=== PATIENT | female | born 1990 | race Caucasian/White ===

== ENCOUNTER 2020-09-15 21:12 | Inpatient (IN) ==
[2020-09-15] MEDS ORDERED: diphenhydrAMINE 50 MG/ML VIAL IV STA (22:53)
[2020-09-15 23:08] LABS: Hematocrit (blood only) 37.4 % (37-47); Hemoglobin 12.7 g/dL (12.0-16.0); Mean Corpuscular Hemoglobin 30.3 pg (25-34); Mean Corpuscular Volume 89.3 fL (80-100); Mean Platelet Volume 8.4 fL (7.4-10.4); Platelet Count 163 K/uL (130-400); RDW Coefficient of Variation 12.2 % (11.5-14.5); RDW Standard Deviation 39.5 fL (36.4-46.3); Red Blood Count 4.19 M/uL (4.2-5.4); White Blood Count 3.95 K/uL (4.8-10.8)
[2020-09-15 23:29] LABS: Albumin Level 3.6 gm/dl (3.4-5.0); BUN Creatinine Ratio 18.8 (10-20); Calcium 9.1 mg/dl (8.5-10.1); Creatinine Clr Calc Pharmacy 115.3 ml/min; Est GFR (African American) 130.2 ml/min; Est GFR (Non-African American) 112.4 ml/min; Potassium 3.8 mmol/L (3.5-5.1)
[2020-09-15 23:32] LABS: Bilirubin,Total 0.3 mg/dl (0.2-1); Globulin 3.6 gm/dl (2.5-4.0); Total Protein 7.2 gm/dl (6.4-8.2)
[2020-09-15 23:53] LABS: Basophils # (auto) 0.07 K/uL (0-0.2); Basophils % (auto) 1.8 %; Eosinophils % (auto) 5.1 %; Lymphocytes % (auto) 50.6 %; Monocytes # (auto) 0.69 K/uL (0.11-0.59); Monocytes % (auto) 17.5 %; Neutrophils # (auto) 0.99 K/uL (1.4-6.5)
[2020-09-16] MEDS ORDERED: OPTIRAY 320 100ml IV ONE (00:09)
[2020-09-16] MEDS ORDERED: AMPICILLIN/SULBACTAM SOD 3,000 MG in 0.9 % SODIUM CHLORIDE 100 ML IV STA (00:47)
[2020-09-16] MEDS ORDERED: ACETAMINOPHEN 500 MG TAB PO STA (02:03)
[2020-09-16] MEDS ORDERED: VANCOMYCIN CONSULT ACTIVE PRN (04:29)
[2020-09-16] MEDS ORDERED: SODIUM CHLORIDE 0.9% 1000ML 1,000 ML IV SCH ×2 (04:29→16:15)
[2020-09-16] MEDS ORDERED: POLYETHYLENE (MIRALAX) 17 GM PACK PO PRN (04:29)
[2020-09-16] MEDS ORDERED: PIPERACILL/TAZOBAC CONSULT ACTIVE PRN (04:29)
[2020-09-16] MEDS: ACETAMINOPHEN 325 MG TAB PO PRN ×3 (05:18→19:54)
[2020-09-16] MEDS ORDERED: PIPERACILLIN/TAZOBACTAM 3.375 GM in DEXTROSE 5% 100 ML IV ONE (05:30)
[2020-09-16] MEDS ORDERED: VANCOMYCIN HCL 1,750 MG in SODIUM CHLORIDE 0.9% 500 ML IV ONE (05:30)
--- NOTE | 2020-09-16 06:24 | History and Physical Report ---
DATE OF ADMISSION: 09/16/2020. CHIEF COMPLAINT: Facial cellulitis. HISTORY OF PRESENT ILLNESS: This is a 30-year-old female with no significant past medical history who presents with facial cellulitis on the left side. The patient started noticing a pimple in the left side of the nose. This got worsened, went to a care center and they prescribed Keflex, but it was not getting better, so went again yesterday and was prescribed Augmentin and clindamycin, but then she broke out in a rash and came here. Now the infection is involving the whole of the left side of the face and also for some swelling around the left eye. So came here and breaking out of the skin rash was thought to be from clindamycin because she has tolerated Augmentin in the past. She was given Unasyn and IV Benadryl in the ER. Currently, resting comfortably and hemodynamically stable. Swelling on the left side of the face with some mild swelling around the left side of the eye. Denies any fever or chills. No shortness of breath, no cough, no chest pain. Has some headache, no blurred visions. No nausea, no abdominal pain, normal bowel and bladder movements. ALLERGIES: No known drug allergies. PAST MEDICAL HISTORY: As mentioned above. PAST SURGICAL HISTORY: None. MEDICATIONS: None. FAMILY HISTORY: None. SOCIAL HISTORY: No smoking, no alcohol. REVIEW OF SYSTEMS: As per HPI. Rest of the review of systems is negative. PHYSICAL EXAMINATION: GENERAL: The patient is of moderate build, not in acute distress. VITAL SIGNS: Temperature 36.7, pulse 70, respiratory rate 14, blood pressure 124/73, oxygen 100% on room air. HEENT: Pupils equal, round and reactive to light. Left eye perioribital edema seen and mild erythema seen. The left side of the face is erythematous and swollen and some black scar seen close to the left side of the nose. NECK: No JVD, no neck masses. CARDIOVASCULAR: S1 and S2 heard. Regular rate and rhythm. No murmur, no gallop. RESPIRATORY SYSTEM: Normal AP diameter. No accessory muscle use. No wheezing, no crackles. ABDOMEN: Soft, bowel sounds present, nontender, no distention. CENTRAL NERVOUS SYSTEM: Cranial nerves II-XII grossly intact, nonfocal. EXTREMITIES: No edema, no erythema. LABORATORY DATA: WBC 3.95, hemoglobin 12.7, hematocrit 37.4, platelets 163, neutrophils 0.9 and monocytes 0.69. Sodium 138, potassium 3.8, chloride 108, bicarbonate 27, BUN 14, creatinine 0.7, serum glucose 89, calcium 9.1, total bilirubin 0.3, AST 14, ALT 22, alkaline phosphatase 53. SARS-CoV-2 PCR negative. IMAGING DATA: Facial CT, preliminary report is showing nonspecific left periorbital and premarrow soft tissue edema with subcutaneous fat stranding, likely cellulitis given the clinical scenario, nonspecific enlarged left station IB and bilateral station II lymph nodes, likely reactive. No evidence of abscess. ASSESSMENT AND PLAN: This is a 30-year-old female, who presents with left facial cellulitis. 1. Left facial cellulitis: started about one week ago with pimple. Failed outpatient treatment with oral antibiotics and also some possible rash developed from the clindamycin. ER gave Unasyn. We will start empirically on IV Zosyn and IV vancomycin. Follow the cultures. Follow the response. Monitor in the medical floor. 2. Leukopenia. Neutropenia. Follow repeat labs. 3.. Deep venous thrombosis prophylaxis: Sequential compression devices. DISPOSITION: Admit to medical floor. Expect to discharge home and follow with family doctor. Level 1 full code. Job ID: [id number] [facility]
[2020-09-16 07:19] LABS: Hematocrit (blood only) 36.7 % (37-47); Hemoglobin 12.2 g/dL (12.0-16.0); Mean Corpuscular Hemoglobin 30.7 pg (25-34); Mean Corpuscular Hgb Conc 33.2 g/dL (32-36); Mean Corpuscular Volume 92.4 fL (80-100); Mean Platelet Volume 8.2 fL (7.4-10.4); Platelet Count 158 K/uL (130-400); RDW Coefficient of Variation 12.3 % (11.5-14.5); RDW Standard Deviation 42.3 fL (36.4-46.3); Red Blood Count 3.97 M/uL (4.2-5.4); White Blood Count 3.93 K/uL (4.8-10.8)
[2020-09-16 07:46] LABS: BUN Creatinine Ratio 15.3 (10-20); Calcium 8.5 mg/dl (8.5-10.1); Creatinine Clr Calc Pharmacy 112.1 ml/min; Est GFR (Non-African American) 108.7 ml/min; Magnesium 2.1 mg/dl (1.8-2.4); Potassium 4.1 mmol/L (3.5-5.1)
[2020-09-16 07:53] LABS: Basophils # (auto) 0.08 K/uL (0-0.2); Eosinophils # (auto) 0.16 K/uL (0-0.5); Eosinophils % (auto) 4.1 %; Immature Granulocytes # (auto) 0.01 K/uL (0.00-0.02); Immature Granulocytes % (auto) 0.3 %; Lymphocytes # (auto) 1.69 K/uL (1.2-3.4); Monocytes % (auto) 25.4 %; Neutrophils # (auto) 0.99 K/uL (1.4-6.5); Neutrophils % (auto) 25.2 %
--- NOTE | 2020-09-16 07:54 | CT Scan Report ---
CT SCAN OF THE FACIAL BONES WITH IV CONTRAST CLINICAL HISTORY: Left periorbital/facial swelling. Cellulitis. COMPARISON STUDY: No priors. TECHNIQUE: High-resolution CT scan of the facial bones is performed following the IV administration of 93 cc of Optiray 320. Images are reviewed in the axial, sagittal, and coronal planes. IV contrast was administered without complication. A dose lowering technique was utilized adhering to the princi ples of BONNIE. CT DOSE: 172.59 mGy.cm FINDINGS: The skeletal structures are well mineralized. There is no evidence of facial bone fracture. The bony orbits are intact and the orbital contents are within normal limits. The zygomatic arches, nasal bones, and pterygoid plates are preserved. The maxilla and mandible are intact. There are no la yering blood products within the paranasal sinuses. The sinuses and mastoids are clear. The visualize d calvarium and upper cervical spine are maintained. Partially imaged brain parenchyma is within norm al limits. There is left periorbital and premalar soft tissue infiltration consistent with cellulitis . No organized fluid collection is seen to suggest abscess. The carotid arteries and jugular veins ar e patent. The salivary glands are normal in appearance. Prominent left submandibular and upper cervic al chain lymph nodes are likely reactive. IMPRESSION: 1. No facial bone abnormality is identified. 2. There is evidence of left periorbital and facial cellulitis. No organized fluid collection is seen to suggest abscess. 3. Prominent left submandibular and upper cervical chain lymph nodes are likely reactive. 4. Orbital contents are normal in appearance. ACT 112: Negative or not required by law. Electronically signed by: Marko De Paz M.D. 09/16/2020 7:52 AM
--- NOTE | 2020-09-16 10:14 | Pharmacy Report ---
Pharmacy Abx Dose Short Note - Date of Service September 16, 2020 - Assessment & Plan Assessment 30 year old F receiving Vancomycin and Zosyn for treatment of facial cellulitis * No significant past medical history. * Patient had pimple on L side of nose which worsened so she was prescribed Keflex as outpatient. Still was not improving so abx were escalated to Augmentin and Clindamycin. Broke out in a rash and came to ER. Likely rxn to Clindamycin as she has tolerated Augmentin in the past. * CT showed cellulitis. No evidence of osteomyelitis or abscess. * MRSA nasal swab negative. Blood cultures pending. Afebrile and without leukocytosis. Renal fxn stable. Plan Vancomycin * Loading Dose: 1750 mg (25 mg/kg) IV x 1 * Maintenance Dose: 1000 mg (15 mg/kg) IV every 12 hours * Goal trough level: 10-20 mcg/mL * Trough will be ordered on 09/18/20 prior to the 1400 dose Zosyn * 3.375 g IV x 1 followed by 3.375 g IV extended infusion every 8 hours for CrCl greater than 20 mL/min Pharmacy will continue to follow and will adjust dose/frequency as necessary. Thank you.
[2020-09-16] MEDS ORDERED: PIPERACILLIN/TAZOBACTAM 3.375 GM in DEXTROSE 5% 100 ML IV SCH (12:00)
[2020-09-16] MEDS ORDERED: VANCOMYCIN HCL 1,000 MG in SODIUM CHLORIDE 0.9% 250 ML IV SCH (14:00)
--- NOTE | 2020-09-16 15:42 | Hospitalist Progress Note ---
Date of Service September 16, 2020 Assessment & Plan (1) Cellulitis of face: Patient is a 30 yr female, who presents with left facial cellulitis. Left facial cellulitis: Possible Drug reaction to Augmentin -POA -Facial CT: No facial bone abnormality is identified. There is evidence of left periorbital and facial cellulitis. No organized fluid collection is seen to suggest abscess. Prominent left submandibular and upper cervical chain lymph nodes are likely reactive. Orbital contents are normal in appearance. -Outpatient Augmentin, clindamycin discontinued -Continue cefazolin Leukopenia Neutropenia Likely due to infection/meds Neutropenic precautions Monitor CBC DVT Px: SCDs for now Encourage to ambulate Code Status Full code. Admission and Anticipated Discharge Date Admission Date: September 16, 2020 Subjective Is continued swelling and redness on face, no fever or chills, no problems swallowing Review of Systems Review of Systems: All systems reviewed & are unremarkable except as noted in Subjective Physical Exam Constitutional: WD/WN, vitals as above no acute distress ENMT: Swelling, on the left side of face, eschar noted on the left side of initial. Neck: trachea midline, no thyromegaly Respiratory: normal respiratory effort, lungs clear to auscultation Cardiovascular: RRR, no murmur, no edema Gastrointestinal (Abdomen): normal bowel sounds, soft, nontender, no hepatosplenomegaly Musculoskeletal: no cyanosis or clubbing, extremities motor strength 5/5 Skin: no rashes, warm and dry Neurologic: PERRL, EOMI, accommodation nl, no face palsy, no dysarthria Psychiatric: A+Ox3, euthymic affect Results & Data Results & Data ([facility]) Vital Signs (Past 12 Hours) Vital Signs Temp Pulse Resp BP Pulse Ox Pulse Ox 09/16/20 04:32 37.1 C 77 19 133/96 100 100 09/16/20 04:00 36.7 C 84 16 126/83 99
[2020-09-16] MEDS: AMPICILLIN/SULBACTAM SOD 3,000 MG in 0.9 % SODIUM CHLORIDE 100 ML IV SCH ×2 (16:43→22:31)
[2020-09-16] MEDS: KETOROLAC TROMETHAMINE 15 MG/ML VIAL IV PRN ×2 (16:44→22:31)
[2020-09-16] MEDS ORDERED: AMOXICILLIN/CLAVULANATE 875 MG TAB PO SCH (17:00)
[2020-09-16] MEDS: MUPIROCIN 2% EXT SCH (19:51)
[2020-09-17] MEDS: AMPICILLIN/SULBACTAM SOD 3,000 MG in 0.9 % SODIUM CHLORIDE 100 ML IV SCH ×2 (03:49→10:48)
[2020-09-17] MEDS: KETOROLAC TROMETHAMINE 15 MG/ML VIAL IV PRN (06:21)
[2020-09-17 06:23] LABS: Hematocrit (blood only) 35.9 % (37-47); Hemoglobin 11.9 g/dL (12.0-16.0); Mean Corpuscular Hemoglobin 30.3 pg (25-34); Mean Corpuscular Hgb Conc 33.1 g/dL (32-36); Mean Corpuscular Volume 91.3 fL (80-100); Mean Platelet Volume 8.4 fL (7.4-10.4); Platelet Count 160 K/uL (130-400); RDW Coefficient of Variation 12.1 % (11.5-14.5); RDW Standard Deviation 41.2 fL (36.4-46.3); Red Blood Count 3.93 M/uL (4.2-5.4); White Blood Count 5.28 K/uL (4.8-10.8)
[2020-09-17 06:41] LABS: Basophils # (auto) 0.06 K/uL (0-0.2); Basophils % (auto) 1.1 %; Eosinophils # (auto) 0.15 K/uL (0-0.5); Eosinophils % (auto) 2.8 %; Immature Granulocytes # (auto) 0.01 K/uL (0.00-0.02); Immature Granulocytes % (auto) 0.2 %; Lymphocytes % (auto) 43.6 %; Monocytes # (auto) 0.61 K/uL (0.11-0.59); Monocytes % (auto) 11.6 %; Neutrophils # (auto) 2.15 K/uL (1.4-6.5); Neutrophils % (auto) 40.7 %
[2020-09-17 06:50] LABS: Creatinine Clr Calc Pharmacy 159.6 ml/min; Est GFR (African American) 148.6 ml/min; Est GFR (Non-African American) 128.2 ml/min
--- NOTE | 2020-09-17 07:23 | Emergency Department Note ---
History of Present Illness General Chief complaint: Skin Problem Stated complaint: RASH ON BODY, LEISION ON LEFT SIDE OF NOSE Time Seen by Provider: 09/15/20 22:16 Source: patient Mode of arrival: ambulatory Limitations: no limitations History of Present Illness Maximum Pain Intensity: 8 This patient is a 30-year-old female who presents to the emergency department for evaluation of swelling on her face. Patient states that last week, she noticed a bump on the left side of her nose which she initially thought was a pimple. It gradually became more swollen and there was a scabbed area over the nose. She was seen at urgent care yesterday and started on Keflex. This morning, she woke up and the swelling had increased significantly. She noticed swelling around her left eye. She was again seen in urgent care and was switched from the Keflex to Augmentin, clindamycin and Bactroban. She states that after starting these medications, she developed a rash on her chest, back and arms which is itchy. She believes she may be allergic to the clindamycin, as she has never had any issues with penicillins in the past. She denies any fevers. She denies any difficulty moving her eye or double vision. Home Medications Medication Instructions Recorded Confirmed Type cephalexin 500 mg PO QID 09/16/20 09/16/20 History etonogestrel-ethinyl estradiol 1 vag ring VAGINAL UD 09/16/20 09/16/20 History [EluRyng] Allergies Allergy/AdvReac Type Severity Reaction Status Date / Time No Known Allergies Allergy Unverified 09/16/20 00:02 Past Med/Surg History Medical History No significant past medical history Social History Smoking Status: Never smoker Second Hand Exposure: No; Do You Dip or Chew Tobacco: No; Tobacco Cessation Education Requested by Patient: No Hx Alcohol Use: Yes Alcohol type: beer and wine Hx Substance Use: No Preferred Language: Japanese Communication Ability: Effective 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 GENERAL: This is a 30-year-old female, in no acute distress, well-developed well-nourished. SKIN: There is a crusted lesion to the left side of the nose. There is surrounding erythema and swelling which extends to the left periorbital region. HEAD: Normocephalic atraumatic. EARS: External auditory canals clear, tympanic membranes pearly vila without erythema or effusion bilaterally. EYES: Left periorbital swelling noted. Pupils equal round and reactive to light and accommodation. EOMs intact. NOSE: Crusted lesion to the left side of the nose. MOUTH: Mucous membranes moist. Tonsils are not enlarged. Pharynx without erythema or exudate. NECK: Supple without nuchal rigidity. No lymphadenopathy. HEART: Regular rate and rhythm without murmurs gallops or rubs. LUNGS: Clear to auscultation bilaterally without wheezes, rales or rhonchi. NEURO: Patient was alert and oriented to person place and time. Course Consultations Consultation #1: Dr. Maria [facility] hospitalist Administered Medications Acetaminophen (Acetaminophen 325 Mg Tab) 650 mg PO Q4H PRN PRN Reason: pain/fever Stop: 10/16/20 04:28 Last Admin: 09/16/20 19:54 Dose: 650 mg Documented by: [id number] Admin: 09/16/20 09:47 Dose: 650 mg Documented by: [id number] Admin: 09/16/20 05:18 Dose: 650 mg Documented by: [id number] Ampicillin Sodium/Sulbactam Sodium 3,000 mg/ Sodium Chloride 108 mls @ 216 mls/hr IV Q6H [facility]; Protocol Stop: 09/23/20 16:29 Last Infusion: 09/17/20 04:20 Dose: 0 mls/hr Documented by: [id number] Admin: 09/17/20 03:49 Dose: 216 mls/hr Documented by: [id number] Infusion: 09/16/20 23:01 Dose: 0 mls/hr Documented by: [id number] Admin: 09/16/20 22:31 Dose: 216 mls/hr Documented by: [id number] Infusion: 09/16/20 17:22 Dose: 0 mls/hr Documented by: [id number] Admin: 09/16/20 16:43 Dose: 216 mls/hr Documented by: [id number] Ketorolac Tromethamine (Ketorolac Tromethamine 15 Mg/Ml Vial) 15 mg IV Q6H PRN PRN Reason: Pain Stop: 09/21/20 16:10 Last Admin: 09/17/20 06:21 Dose: 15 mg Documented by: [id number] Admin: 09/16/20 22:31 Dose: 15 mg Documented by: [id number] Admin: 09/16/20 16:44 Dose: 15 mg Documented by: [id number] Mupirocin (Pt Own Med - Mupirocin 2% Oint 22 Gm Tube) 1 appln EXT TID HERLINDA Stop: 10/16/20 20:59 Last Admin: 09/16/20 19:51 Dose: 1 appln Documented by: [id number] Zinc Acetate/Diphenhydramine (Diphenhydramine 2%/Zinc 0.1% Cream 28gm Tube) 1 appln EXT Q6 PRN PRN Reason: Itching Stop: 10/16/20 18:59 Last Admin: 09/16/20 19:54 Dose: 1 appln Documented by: [id number] Discontinued Medications Acetaminophen (Acetaminophen 500 Mg Tab) 1,000 mg PO NOW STA Stop: 09/16/20 02:04 Last Admin: 09/16/20 02:08 Dose: 1,000 mg Documented by: [id number] Diphenhydramine HCl (Diphenhydramine 50 Mg/Ml Vial) 25 mg IV NOW STA Stop: 09/15/20 22:54 Last Admin: 09/15/20 23:05 Dose: 25 mg Documented by: [id number] Ampicillin Sodium/Sulbactam Sodium 3,000 mg/ Sodium Chloride 108 mls @ 200 mls/hr IV NOW STA; Protocol Stop: 09/16/20 01:19 Last Infusion: 09/16/20 01:43 Dose: 0 mls/hr Documented by: [id number] Admin: 09/16/20 01:01 Dose: 200 mls/hr Documented by: [id number] Piperacillin Sod/Tazobactam (Sod 3.375 gm/ Dextrose) 115 mls @ 28.75 mls/hr IV Q8H HERLINDA; Protocol Stop: 09/23/20 11:59 Last Infusion: 09/16/20 15:28 Dose: 0 mls/hr Documented by: [id number] Admin: 09/16/20 12:01 Dose: 28.8 mls/hr Documented by: [id number] Vancomycin HCl 1,750 mg/ (Sodium Chloride) 535 mls @ 200 mls/hr IV ONE ONE; Protocol Stop: 09/16/20 08:10 Last Infusion: 09/16/20 09:47 Dose: 0 mls/hr Documented by: [id number] Admin: 09/16/20 06:03 Dose: 200 mls/hr Documented by: [id number] Sodium Chloride (Nss 1000ml) 1,000 mls @ 100 mls/hr IV .Q10H HERLINDA Stop: 09/16/20 14:28 Last Infusion: 09/16/20 12:44 Dose: 0 mls/hr Documented by: [id number] Admin: 09/16/20 05:18 Dose: 100 mls/hr Documented by: [id number] Piperacillin Sod/Tazobactam (Sod 3.375 gm/ Dextrose) 115 mls @ 230 mls/hr IV ONE ONE; Protocol Stop: 09/16/20 05:59 Last Infusion: 09/16/20 05:52 Dose: 0 mls/hr Documented by: [id number] Admin: 09/16/20 05:22 Dose: 230 mls/hr Documented by: [id number] Sodium Chloride (Nss 1000ml) 1,000 mls @ 75 mls/hr IV .[id number] HERLINDA Stop: 09/17/20 05:34 Last Infusion: 09/17/20 05:39 Dose: 0 mls/hr Documented by: [id number] Admin: 09/16/20 16:43 Dose: 75 mls/hr Documented by: [id number] Ioversol (Optiray 320 100ml) 100 ml IV ONCE ONE Stop: 09/16/20 00:10 Last Admin: 09/16/20 00:10 Dose: 93 ml Documented by: [id number] Medical Decision Making Differential Diagnosis Differential diagnosis includes facial facial cellulitis, abscess, allergic reaction, orbital cellulitis, among others. Home Medications Current Medication List: was personally reviewed by me Laboratory Data Attestation: I reviewed the patient's lab results. Result diagrams: 09/17/20 05:53 09/17/20 05:53 Lab Results 09/15/20 09/15/20 09/16/20 Range/Units 23:00 23:00 01:05 WBC 3.95 L (4.8-10.8) K/uL RBC 4.19 L (4.2-5.4) M/uL Hgb 12.7 (12.0-16.0) g/dL Hct 37.4 (37-47) % MCV 89.3 (80-100) fL MCH 30.3 (25-34) pg MCHC 34.0 (32-36) g/dL RDW Std Deviation 39.5 (36.4-46.3) fL RDW Coeff of Uriel 12.2 (11.5-14.5) % Plt Count 163 (130-400) K/uL MPV 8.4 (7.4-10.4) fL Immature Gran % (Auto) 0.0 % Neut % (Auto) 25.0 % Lymph % (Auto) 50.6 % Lander % (Auto) 17.5 % Eos % (Auto) 5.1 % Baso % (Auto) 1.8 % Neut # (Auto) 0.99 L* (1.4-6.5) K/uL Lymph # (Auto) 2.00 (1.2-3.4) K/uL Lander # (Auto) 0.69 H (0.11-0.59) K/uL Eos # (Auto) 0.20 (0-0.5) K/uL Baso # (Auto) 0.07 (0-0.2) K/uL Immature Gran # (Auto) 0.00 (0.00-0.02) K/uL Sodium 139 (136-145) mmol/L Potassium 3.8 (3.5-5.1) mmol/L Chloride 108 H (98-107) mmol/L Carbon Dioxide 27 (21-32) mmol/L Anion Gap 4.0 (3-11) BUN 14 (7-18) mg/dl Creatinine 0.72 (0.6-1.2) mg/dl Est Cr Clr Drug Dosing 115.3 ml/min Est GFR ( Amer) 130.2 ml/min Est GFR (Non-Af Amer) 112.4 ml/min BUN/Creatinine Ratio 18.8 (10-20) Glucose 89 (70-99) mg/dl Calcium 9.1 (8.5-10.1) mg/dl Total Bilirubin 0.3 (0.2-1) mg/dl AST 14 L (15-37) U/L ALT 22 (12-78) U/L Alkaline Phosphatase 53 (45-117) U/L Total Protein 7.2 (6.4-8.2) gm/dl Albumin 3.6 (3.4-5.0) gm/dl Globulin 3.6 (2.5-4.0) gm/dl Albumin/Globulin Ratio 1.0 (0.9-2) COVID-19 Eval Order Covid19 at [facility] SARS-CoV-2 (PCR) (Negative) 09/16/20 Range/Units 01:05 WBC (4.8-10.8) K/uL RBC (4.2-5.4) M/uL Hgb (12.0-16.0) g/dL Hct (37-47) % MCV (80-100) fL MCH (25-34) pg MCHC (32-36) g/dL RDW Std Deviation (36.4-46.3) fL RDW Coeff of Uriel (11.5-14.5) % Plt Count (130-400) K/uL MPV (7.4-10.4) fL Immature Gran % (Auto) % Neut % (Auto) % Lymph % (Auto) % Lander % (Auto) % Eos % (Auto) % Baso % (Auto) % Neut # (Auto) (1.4-6.5) K/uL Lymph # (Auto) (1.2-3.4) K/uL Lander # (Auto) (0.11-0.59) K/uL Eos # (Auto) (0-0.5) K/uL Baso # (Auto) (0-0.2) K/uL Immature Gran # (Auto) (0.00-0.02) K/uL Sodium (136-145) mmol/L Potassium (3.5-5.1) mmol/L Chloride (98-107) mmol/L Carbon Dioxide (21-32) mmol/L Anion Gap (3-11) BUN (7-18) mg/dl Creatinine (0.6-1.2) mg/dl Est Cr Clr Drug Dosing ml/min Est GFR ( Amer) ml/min Est GFR (Non-Af Amer) ml/min BUN/Creatinine Ratio (10-20) Glucose (70-99) mg/dl Calcium (8.5-10.1) mg/dl Total Bilirubin (0.2-1) mg/dl AST (15-37) U/L ALT (12-78) U/L Alkaline Phosphatase (45-117) U/L Total Protein (6.4-8.2) gm/dl Albumin (3.4-5.0) gm/dl Globulin (2.5-4.0) gm/dl Albumin/Globulin Ratio (0.9-2) COVID-19 Eval Order SARS-CoV-2 (PCR) NEGATIVE (Negative) Imaging Data Attestation: I personally reviewed and interpreted this imaging study as follows: Radiologist's Impression: CT FACIAL: Nonspecific left periorbital and pre-marrow soft tissue edema with subcutaneous fat stranding likely reflecting cellulitis given the clinical scenario. Nonspecific enlarged left station 1B and bilateral station 2 lymph nodes, likely reactive. No evidence of abscess. Normal appearance of post-septal orbital fat. Nonspecific distention and tortuosity of bilateral optic nerve sheath, most commonly incidental and asymptomatic finding but on occasion associated with idiopathic intracranial hypertension. Radiologist: Verena Hylton M.D. MDM Narrative Continuous pvc monitor: Order was placed for continuous pvc monitor. Patient was placed on the pvc monitor. Patient was noted to be in normal sinus rhythm at an initial rate of 81 bpm. The patient is a 30-year-old female who presents today complaining of left-sided facial swelling. Patient has been on antibiotics for the past 2 days, first Keflex, then Augmentin and clindamycin without improvement of her symptoms. Symptoms have been worsening. She now has fairly significant periorbital swelling. As patient has been treated as an outpatient for approximately 48 hours and has had worsening symptoms, I do feel it is reasonable to keep her for IV antibiotics. The [facility] hospitalist service was consulted and agreed to evaluate the patient for further care. Impression & Plan Cellulitis of face Discharge Plan Visit Data Chief Complaint: Skin Problem Stated Complaint: RASH ON BODY, LEISION ON LEFT SIDE OF NOSE ED Provider: Dallas Nguyen ED Midlevel Provider: Cecilia Gan Discharge Problem: Cellulitis of face Patient Disposition: Admitted As Inpatient Discharge Instructions Interventions: ED Discharge Assessment Last Done: 09/16/20 04:04
[2020-09-17] MEDS: ADVANCED PROBIOTIC 1250 MG CAPSULE PO SCH (09:56)
[2020-09-17] MEDS: RIZATRIPTAN BENZOATE 10 MG TAB PO PRN (09:58)
[2020-09-17] MEDS: MUPIROCIN 2% EXT SCH ×3 (10:49→21:07)
[2020-09-17] MEDS ORDERED: DOXYCYCLINE HYCLATE 100 MG CAP PO SCH (12:45)
--- NOTE | 2020-09-17 17:49 | Hospitalist Progress Note ---
Date of Service September 17, 2020 Assessment & Plan (1) Cellulitis of face: Patient is a 30 yr female, who presents with left facial cellulitis. Left facial cellulitis: Possible Drug reaction to Augmentin -POA -Facial CT: No facial bone abnormality is identified. There is evidence of left periorbital and facial cellulitis. No organized fluid collection is seen to suggest abscess. Prominent left submandibular and upper cervical chain lymph nodes are likely reactive. Orbital contents are normal in appearance. -Outpatient Augmentin, clindamycin discontinued -Started on cefazolin -Wound, blood cultures pending -Appreciated ID input -Consulted ENT for possible debridement -Patient/family prefers to be transferred to [facility] for further evaluation Patient was accepted By Dr.Shril Bucky Orourke at [facility] Plan to transfer to [facility] when bed is available Leukopenia Neutropenia Likely due to infection/meds Monitor DVT Px: SCDs for now Encourage to ambulate Code Status Full code. Admission and Anticipated Discharge Date Admission Date: September 16, 2020 Subjective Patient is seen and examined at bedside States having intermittently generalized weakness Also concerned about worsening left facial lesion, swelling Discussed with infectious disease Also discussed with patient's family at bedside Patient is prefers to be transferred to [facility] for further evaluation Review of Systems Review of Systems: All systems reviewed & are unremarkable except as noted in HPI & below Physical Exam Physical Exam: Physical Exam: Vitals signs as noted above General Appearance:Moderately built and nourished, no apparent distress Head: normocephalic, Atraumatic, + Left facial eschar, erythema, swelling Eyes: normal inspection, EOMI Neck: supple, Trachea midline Respiratory/Chest: Normal breath sounds, CTA Cardiovascular: S1, S2, No murmur Abdomen/GI:Soft, Non tender, Bowel sounds present Extremities/Musculoskeletal:normal inspection, no edema Neurologic/Psych:AAOX3, grossly no focal neurological deficits Skin: normal color, warm, Generalized rash Results & Data Results & Data ([facility]) Vital Signs (Past 12 Hours) Vital Signs Temp Pulse Resp BP Pulse Ox 09/17/20 07:38 36.6 C 83 18 131/74 98 Laboratory Results Short CBC 09/17/20 Range/Units 05:53 WBC 5.28 (4.8-10.8) K/uL Hgb 11.9 L (12.0-16.0) g/dL Hct 35.9 L (37-47) % Plt Count 160 (130-400) K/uL BMP 09/17/20 05:53 Creatinine 0.52 L
--- NOTE | 2020-09-17 18:13 | ENT Consultation ---
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 Augmentin and clindamycin then developed a rash and had increasing swelling of the left face swelling the left eye shut yesterday causing a black eschar on the left side of the nose was admitted for IV antibiotics. No sign of Mucor with a history of having had Covid earlier this year. Agree with present antibiotic treatment and waiting culture. The only other consideration would be a brown recluse spider bite. History of Present Illness Reason for Consultation: Left facial swelling Attending Physician: River Ledbetter MD History of Present Illness This 30-year-old female experienced acute onset of left facial erythema and swelling last week which became an ulceration this past Tuesday which she measured to be 1.7 cm then developed left facial swelling swelling the left eye shut which then spread to the right eye with swelling yesterday in spite of being treated with Augmentin and clindamycin and mupirocin. She developed a rash with possible reaction to clindamycin. She was admitted via the emergency room and started on Unasyn. The left face still remains swollen with erythema however the eyes have opened where she can see very well. Allergies Allergy/AdvReac Type Severity Reaction Status Date / Time No Known Allergies Allergy Unverified 09/16/20 00:02 Home Medications Medication Instructions Recorded Confirmed Type cephalexin 500 mg PO QID 09/16/20 09/16/20 History etonogestrel-ethinyl estradiol 1 vag ring VAGINAL UD 09/16/20 09/16/20 History [EluRyng] Patient History Medical History No significant past medical history Social History Smoking Status: Never smoker Second Hand Exposure: No; Do You Dip or Chew Tobacco: No; Tobacco Cessation Education Requested by Patient: No Hx Alcohol Use: Yes Alcohol type: beer and wine Hx Substance Use: No Preferred Language: Gibraltarian Communication Ability: Effective 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 Beliefs That Will Affect Care: None Current Living Situation: Alone Feels Safe at Home: No Is there a partner from a previous relationship who is making you feel unsafe now?: No Any Concerns about Your Family Situation: No Would You Like to Speak to Someone About Your Situation: No Safety Concerns: Feels Safe At This Time Assistive Devices: None Physical Exam Constitutional: WD/WN, vitals as above Eyes: PERRL, conjunctivae normal, anicteric sclerae + eyelid abnormality (Mild to moderate edema of the left periorbital area, eye open widely), normal accommodation, EOM intact bilaterally and + abnormal light reflex ENMT: external ear and nose normal, oropharynx normal Nose: + external nose abnormality (2 cm black eschar left side of nose with surrounding erythema and facial sw) and + turbinate abnormality (Specifically the turbinates show no sign of black eschar or of necrosis) Neck: trachea midline, no thyromegaly Results & Data ([facility]) Vital Signs (Past 12 Hours) Vital Signs Temp Pulse Resp BP Pulse Ox 09/17/20 07:38 36.6 C 83 18 131/74 98
[2020-09-17] MEDS: ceFAZolin 2000MG 2,000 MG/15 ML SYR IV SCH ×2 (18:15→23:22)
[2020-09-18] MEDS: ceFAZolin 2000MG 2,000 MG/15 ML SYR IV SCH ×3 (05:57→22:07)
[2020-09-18] MEDS: RIZATRIPTAN BENZOATE 10 MG TAB PO PRN (06:11)
[2020-09-18 07:04] LABS: Hematocrit (blood only) 36.7 % (37-47); Hemoglobin 12.6 g/dL (12.0-16.0); Mean Corpuscular Hemoglobin 30.4 pg (25-34); Mean Corpuscular Hgb Conc 34.3 g/dL (32-36); Mean Corpuscular Volume 88.6 fL (80-100); Mean Platelet Volume 8.2 fL (7.4-10.4); Platelet Count 184 K/uL (130-400); RDW Coefficient of Variation 12.1 % (11.5-14.5); RDW Standard Deviation 39.3 fL (36.4-46.3); Red Blood Count 4.14 M/uL (4.2-5.4); White Blood Count 4.51 K/uL (4.8-10.8)
[2020-09-18 07:37] LABS: BUN Creatinine Ratio 10.9 (10-20); Calcium 8.8 mg/dl (8.5-10.1); Creatinine Clr Calc Pharmacy 110.6 ml/min; Potassium 3.9 mmol/L (3.5-5.1)
[2020-09-18 07:51] LABS: Basophils # (auto) 0.05 K/uL (0-0.2); Basophils % (auto) 1.1 %; Eosinophils # (auto) 0.17 K/uL (0-0.5); Eosinophils % (auto) 3.8 %; Immature Granulocytes # (auto) 0.01 K/uL (0.00-0.02); Immature Granulocytes % (auto) 0.2 %; Lymphocytes # (auto) 2.83 K/uL (1.2-3.4); Lymphocytes % (auto) 62.7 %; Monocytes # (auto) 0.68 K/uL (0.11-0.59); Monocytes % (auto) 15.1 %; Neutrophils # (auto) 0.77 K/uL (1.4-6.5); Neutrophils % (auto) 17.1 %; RBC Morphology Unremarkable
[2020-09-18] MEDS: ADVANCED PROBIOTIC 1250 MG CAPSULE PO SCH (08:37)
[2020-09-18] MEDS: MUPIROCIN 2% EXT SCH ×3 (08:38→21:57)
[2020-09-18] MEDS ORDERED: VANCOMYCIN TROUGH ONE (13:30)
--- NOTE | 2020-09-18 16:59 | Hospitalist Progress Note ---
Date of Service September 18, 2020 Assessment & Plan (1) Cellulitis of face: Patient is a 30 yr female, who presents with left facial cellulitis. Left facial cellulitis: Possible Drug reaction to Augmentin -POA -Facial CT: No facial bone abnormality is identified. There is evidence of left periorbital and facial cellulitis. No organized fluid collection is seen to suggest abscess. Prominent left submandibular and upper cervical chain lymph nodes are likely reactive. Orbital contents are normal in appearance. -Outpatient Augmentin, clindamycin discontinued -Continue cefazolin Day #2 -Wound, blood cultures: No growth to date -Appreciated ID/ENT input -Consulted ENT for possible debridement -Patient/family initially preferred to be transferred to [facility] but later changed their decision -Continue Current medications Plan to discharge on Keflex 100 mg QID complete 2-week course of antibiotic therapy if continues to improve Patient plans to follow-up with ID upon discharge as well Leukopenia Neutropenia Likely due to infection/meds Neutropenic precautions Monitor DVT Px: SCDs for now Encourage to ambulate Code Status Full code. Admission and Anticipated Discharge Date Admission Date: September 16, 2020 Subjective Patient is seen and examined at bedside Rash slowly improving Persistent facial pain/pressure but better Facial swelling improving Discussed with patient's family at bedside Denies chest pain, dyspnea, dizziness, nausea, vomiting, abdominal pain, diarrhea Review of Systems Review of Systems: All systems reviewed & are unremarkable except as noted in HPI & below Physical Exam Physical Exam: Physical Exam: Vitals signs as noted above General Appearance:Moderately built and nourished, no apparent distress Head: normocephalic, Atraumatic, + Left facial eschar, erythema, swelling improving Eyes: normal inspection, EOMI Neck: supple, Trachea midline Respiratory/Chest: Normal breath sounds, CTA Cardiovascular: S1, S2, No murmur Abdomen/GI:Soft, Non tender, Bowel sounds present Extremities/Musculoskeletal:normal inspection, no edema Neurologic/Psych:AAOX3, grossly no focal neurological deficits Skin: normal color, warm, Generalized rash Results & Data Results & Data ([facility]) Vital Signs (Past 12 Hours) Vital Signs Temp Pulse Resp BP Pulse Ox 09/18/20 15:20 37 C 74 13 133/89 98 09/18/20 07:50 37.1 C 64 15 125/80 95 Laboratory Results Short CBC 09/18/20 Range/Units 06:50 WBC 4.51 L (4.8-10.8) K/uL Hgb 12.6 (12.0-16.0) g/dL Hct 36.7 L (37-47) % Plt Count 184 (130-400) K/uL [facility] 09/18/20 06:50 Sodium 138 Potassium 3.9 Chloride 109 H Carbon Dioxide 26 BUN 8 Creatinine 0.75 Glucose 91 Calcium 8.8
[2020-09-19] MEDS: ceFAZolin 2000MG 2,000 MG/15 ML SYR IV SCH ×3 (06:20→22:04)
[2020-09-19] MEDS: ACETAMINOPHEN 325 MG TAB PO PRN (06:23)
[2020-09-19 07:45] LABS: Hematocrit (blood only) 37.8 % (37-47); Hemoglobin 12.9 g/dL (12.0-16.0); Mean Corpuscular Hemoglobin 30.9 pg (25-34); Mean Corpuscular Hgb Conc 34.1 g/dL (32-36); Mean Corpuscular Volume 90.4 fL (80-100); Mean Platelet Volume 8.3 fL (7.4-10.4); Platelet Count 256 K/uL (130-400); RDW Coefficient of Variation 12.2 % (11.5-14.5); RDW Standard Deviation 40.4 fL (36.4-46.3); Red Blood Count 4.18 M/uL (4.2-5.4); White Blood Count 4.55 K/uL (4.8-10.8)
[2020-09-19 08:07] LABS: Basophils # (auto) 0.06 K/uL (0-0.2); Basophils % (auto) 1.3 %; Eosinophils # (auto) 0.23 K/uL (0-0.5); Eosinophils % (auto) 5.1 %; Lymphocytes % (auto) 63.7 %; Monocytes # (auto) 0.55 K/uL (0.11-0.59); Monocytes % (auto) 12.1 %; Neutrophils # (auto) 0.81 K/uL (1.4-6.5); Neutrophils % (auto) 17.8 %
[2020-09-19 08:13] LABS: Calcium 9.1 mg/dl (8.5-10.1); Creatinine Clr Calc Pharmacy 98.8 ml/min; Est GFR (African American) 108.1 ml/min; Est GFR (Non-African American) 93.3 ml/min; Potassium 3.9 mmol/L (3.5-5.1)
[2020-09-19] MEDS: ADVANCED PROBIOTIC 1250 MG CAPSULE PO SCH (09:50)
[2020-09-19] MEDS: MUPIROCIN 2% EXT SCH ×3 (09:51→20:59)
--- NOTE | 2020-09-19 16:42 | Ears,Nose,Throat Progress Note ---
Date of Service September 19, 2020 Assessment & Plan (1) Cellulitis of face: Improving on IV antibiotics. No sign of abscess. Admission and Anticipated Discharge Date Admission Date: September 16, 2020 Subjective Patient was seen and examined. She feels better. The face is less tender. Eye is less swollen and open. Physical Exam Constitutional: WD/WN, vitals as above Eyes: PERRL, conjunctivae normal, anicteric sclerae ENMT: Nose: + external nose abnormality (Eschar left side of nose with no purulence, less erythema) Neck: trachea midline, no thyromegaly Results & Data ([facility]) Vital Signs (Past 12 Hours) Vital Signs Temp Pulse Resp BP Pulse Ox 09/19/20 16:39 36.5 C 69 16 134/84 95 09/19/20 07:51 36.3 C L 66 16 117/80 98
--- NOTE | 2020-09-19 18:22 | Hospitalist Progress Note ---
Date of Service September 19, 2020 Assessment & Plan (1) Cellulitis of face: Patient is a 30 yr female, who presents with left facial cellulitis. Left facial cellulitis: Possible Drug reaction to Augmentin -POA -Facial CT: No facial bone abnormality is identified. There is evidence of left periorbital and facial cellulitis. No organized fluid collection is seen to suggest abscess. Prominent left submandibular and upper cervical chain lymph nodes are likely reactive. Orbital contents are normal in appearance. -Outpatient Augmentin, clindamycin discontinued -Continue cefazolin Day #3 -Wound, blood cultures: No growth to date -Appreciated ID/ENT input Plan to discharge on Keflex 100 mg QID complete 2-week course of antibiotic therapy if continues to improve Patient plans to follow-up with ID upon discharge as well Continue IV antibiotics while hospitalized Likely plan to discharge tomorrow Leukopenia Neutropenia Likely due to infection/meds Neutropenic precautions Monitor Slowly improving DVT Px: SCDs for now Encourage to ambulate Code Status Full code. Admission and Anticipated Discharge Date Admission Date: September 16, 2020 Subjective Patient is seen and examined at bedside Generalized rash resolving Facial pain, pressure much improved today Neutropenia slowly improving as well Blood cultures remain negative No new complaints Denies chest pain, dyspnea, dizziness, nausea, vomiting, abdominal pain Review of Systems Review of Systems: All systems reviewed & are unremarkable except as noted in HPI & below Physical Exam Physical Exam: Physical Exam: Vitals signs as noted above General Appearance:Moderately built and nourished, no apparent distress Head: normocephalic, Atraumatic, + Left facial eschar, erythema, swelling improving Eyes: normal inspection, EOMI Neck: supple, Trachea midline Respiratory/Chest: Normal breath sounds, CTA Cardiovascular: S1, S2, No murmur Abdomen/GI:Soft, Non tender, Bowel sounds present Extremities/Musculoskeletal:normal inspection, no edema Neurologic/Psych:AAOX3, grossly no focal neurological deficits Skin: normal color, warm, Generalized rash Results & Data Results & Data ([facility]) Vital Signs (Past 12 Hours) Vital Signs Temp Pulse Resp BP Pulse Ox 09/19/20 16:39 36.5 C 69 16 134/84 95 09/19/20 07:51 36.3 C L 66 16 117/80 98 Laboratory Results Short CBC 09/19/20 Range/Units 07:06 WBC 4.55 L (4.8-10.8) K/uL Hgb 12.9 (12.0-16.0) g/dL Hct 37.8 (37-47) % Plt Count 256 (130-400) K/uL [facility] 09/19/20 07:06 Sodium 138 Potassium 3.9 Chloride 107 Carbon Dioxide 27 BUN 10 Creatinine 0.84 Glucose 84 Calcium 9.1
[2020-09-20] MEDS: ceFAZolin 2000MG 2,000 MG/15 ML SYR IV SCH (06:13)
[2020-09-20 06:25] LABS: Hematocrit (blood only) 38.8 % (37-47); Hemoglobin 13.1 g/dL (12.0-16.0); Mean Corpuscular Hemoglobin 30.3 pg (25-34); Mean Corpuscular Hgb Conc 33.8 g/dL (32-36); Mean Corpuscular Volume 89.6 fL (80-100); Mean Platelet Volume 8.1 fL (7.4-10.4); Platelet Count 300 K/uL (130-400); RDW Coefficient of Variation 12.1 % (11.5-14.5); RDW Standard Deviation 39.6 fL (36.4-46.3); Red Blood Count 4.33 M/uL (4.2-5.4); White Blood Count 4.88 K/uL (4.8-10.8)
[2020-09-20 06:49] LABS: Basophils # (auto) 0.05 K/uL (0-0.2); Eosinophils # (auto) 0.19 K/uL (0-0.5); Eosinophils % (auto) 3.9 %; Immature Granulocytes # (auto) 0.01 K/uL (0.00-0.02); Immature Granulocytes % (auto) 0.2 %; Lymphocytes % (auto) 67.6 %; Monocytes % (auto) 6.1 %; Neutrophils # (auto) 1.03 K/uL (1.4-6.5); Neutrophils % (auto) 21.2 %
[2020-09-20] MEDS: MUPIROCIN 2% EXT SCH (08:47)
[2020-09-20] MEDS: ADVANCED PROBIOTIC 1250 MG CAPSULE PO SCH (08:47)
--- NOTE | 2020-09-20 12:31 | Hospitalist Progress Note ---
Date of Service September 20, 2020 Assessment & Plan (1) Cellulitis of face: Patient is a 30 yr female, who presents with left facial cellulitis. Left facial cellulitis: Possible Drug reaction to Augmentin -POA -Facial CT: No facial bone abnormality is identified. There is evidence of left periorbital and facial cellulitis. No organized fluid collection is seen to suggest abscess. Prominent left submandibular and upper cervical chain lymph nodes are likely reactive. Orbital contents are normal in appearance. -Outpatient Augmentin, clindamycin discontinued -Continue cefazolin Day #4 -Wound, blood cultures: No growth to date -Appreciated ID/ENT input Plan to discharge on Keflex 100 mg QID complete 2-week course of antibiotic therapy if continues to improve Patient plans to follow-up with ID upon discharge as well Plan t discharge home today Leukopenia Neutropenia Likely due to infection/meds Neutropenic precautions Monitor Neutropenia improved DVT Px: SCDs for now Encourage to ambulate Code Status Full code. Admission and Anticipated Discharge Date Admission Date: September 16, 2020 Subjective Patient is seen and examined at bedside Facial pain, pressure continues to improve Neutropenia improved as well Denies chest pain, dyspnea, dizziness, nausea, vomiting, abdominal pain Eager to get discharged Review of Systems Review of Systems: All systems reviewed & are unremarkable except as noted in HPI & below Physical Exam Physical Exam: Physical Exam: Vitals signs as noted above General Appearance:Moderately built and nourished, no apparent distress Head: normocephalic, Atraumatic, + Left facial eschar, erythema, swelling improving Eyes: normal inspection, EOMI Neck: supple, Trachea midline Respiratory/Chest: Normal breath sounds, CTA Cardiovascular: S1, S2, No murmur Abdomen/GI:Soft, Non tender, Bowel sounds present Extremities/Musculoskeletal:normal inspection, no edema Neurologic/Psych:AAOX3, grossly no focal neurological deficits Skin: normal color, warm, Generalized rash Results & Data Results & Data ([facility]) Vital Signs (Past 12 Hours) Vital Signs Temp Pulse Resp BP Pulse Ox 09/20/20 07:32 36.6 C 67 16 112/69 99 Laboratory Results Short CBC 09/20/20 Range/Units 05:56 WBC 4.88 (4.8-10.8) K/uL Hgb 13.1 (12.0-16.0) g/dL Hct 38.8 (37-47) % Plt Count 300 (130-400) K/uL
--- NOTE | 2020-09-20 12:42 | Discharge Summary ---
Date of Service September 20, 2020 Admission HPI Per Admitting Provider CHIEF COMPLAINT: Facial cellulitis. HISTORY OF PRESENT ILLNESS: This is a 30-year-old female with no significant past medical history who presents with facial cellulitis on the left side. The patient started noticing a pimple in the left side of the nose. This got worsened, went to a care center and they prescribed Keflex, but it was not getting better, so went again yesterday and was prescribed Augmentin and c lindamycin, but then she broke out in a rash and came here. Now the infection is involving the whole of the left side of the face and also for some swelling around the left eye. So came here and breaking out of the skin rash was thought to be from clindamycin because she has tolerated Augmentin in the past. She was given Unasyn and IV Benadryl in the ER. Currently, resting comfortably and hemo dynamically stable. Swelling on the left side of the face with some mild swelling around the left side of the eye. Denies any fever or chills. No shortness of breath, no cough, no chest pain. Has some headache, no blurred visions. No nausea, no abdominal pain, normal bowel and bladder movements. Admission Exam Per Admitting Provider PHYSICAL EXAMINATION: GENERAL: The patient is of moderate build, not in acute distress. VITAL SIGNS: Temperature 36.7, pulse 70, respiratory rate 14, blood pressure 124/73, oxygen 100% on room air. HEENT: Pupils equal, round and reactive to light. Left eye perioribital edema seen and mild erythema seen. The left side of the face is erythematous and swollen and some black scar seen close to the left side of the nose. NECK: No JVD, no neck masses. CARDIOVASCULAR: S1 and S2 heard. Regular rate and rhythm. No murmur, no gallop. RESPIRATORY SYSTEM: Normal AP diameter. No accessory muscle use. No wheezing, no crackles. ABDOMEN: Soft, bowel sounds present, nontender, no distention. CENTRAL NERVOUS SYSTEM: Cranial nerves II-XII grossly intact, nonfocal. EXTREMITIES: No edema, no erythema. Principal Diagnosis Facial cellulitis Drug Reaction Discharge Data Allergies Allergy/AdvReac Type Severity Reaction Status Date / Time Penicillins Allergy Mild Rash Verified 09/18/20 15:15 Consultations 09/16/20 01:06 ED Decision to Admit Stat 09/17/20 12:39 Consult Infectious Diseases Routine 09/17/20 13:00 Consult Otolaryngology (Head and Neck) Routine 09/17/20 17:20 Burn CD for patient Routine Procedures Performed -Facial CT: No facial bone abnormality is identified. There is evidence of left periorbital and facial cellulitis. No organized fluid collection is seen to suggest abscess. Prominent left submandibular and upper cervical chain lymph nodes are likely reactive. Orbital contents are normal in appearance. Ordered Studies 09/15/20 22:53 CT facial bones w con Urgent Hospital Course (1) Cellulitis of face: Patient is a 30 yr female, who presents with left facial cellulitis. Left facial cellulitis: Possible Drug reaction to Augmentin -POA -Facial CT: No facial bone abnormality is identified. There is evidence of left periorbital and facial cellulitis. No organized fluid collection is seen to suggest abscess. Prominent left submandibular and upper cervical chain lymph nodes are likely reactive. Orbital contents are normal in appearance. -Outpatient Augmentin, clindamycin discontinued -Continue cefazolin Day #4 -Wound, blood cultures: No growth to date -Appreciated ID/ENT input Plan to discharge on Keflex 100 mg QID complete 2-week course of antibiotic therapy if continues to improve Patient plans to follow-up with ID upon discharge as well Plan t discharge home today Leukopenia Neutropenia Likely due to infection/meds Neutropenic precautions Monitor Neutropenia improved DVT Px: SCDs for now Encourage to ambulate Code Status Full code. Total Time Total Time Spent Total Time Spent (In Minutes): 40 minutes Total Time Includes: Examination of the Patient, Discharge Planning, Medication Reconciliation, Communication With Other Providers and Other Discharge Plan Discharge Items Patient Disposition: Home - Self-Care Reason For Visit: FACIAL CELLULITIS Discharge Diagnosis: Facial cellulitis Drug Reaction Activity: Resume your previous activity Exercise/Sports: Gradually increase as tolerated Non-emergency contact: Primary Care Provider Call non-emergency contact if: you have any medication questions, your symptoms worsen, your pain is concerning for you, you have a fever, your wound has inc reased redness, your wound has increased drainage and your wound pain has increased Follow-up/Referrals: PCPNO [Physician] - 09/30/20 10:30 am (Dr. Su Lim [address] [address] ) Diet: Regular Addtl Attending Provider Instructions: Follow-up with your primary care physician Dr.Jessica Lim in 1 week upon discharge Follow-up with your infectious disease as scheduled Complete antibiotic course as prescribed. Your final blood cultures are pending at the time of discharge. Also your Serological work up for CMV, HSV are pending at the time of discharge Follow-up with your physician for results. Seek immediate medical attention if your symptoms reoccur or worsen Please take all medications as instructed on discharge list below. Please call if you have any questions or problems. You can reach a [facility] hospitalist on duty at [facility] 24 hours a day by calling [phone] Pending Studies at Discharge: Yes Studies:: Blood/Wound Cultures, Serological work up Stand-Alone Forms: My [facility], Work/School Release, Smoking Cessation Medications and DC Order Prescriptions: New Advanced Probiotic 625 mg (10 billion cell) Capsule 2 cap PO DAILY Qty: 30 RF: 0 cephalexin 500 mg capsule 500 mg PO QID 10 Days Qty: 40 RF: 0 Continued etonogestrel-ethinyl estradiol [EluRyng] 0.12-0.015 mg/24 hr ring 1 vag ring VAGINAL UD RF: 0 Discharge Orders: Discharge Order (Routine); Ordered 09/20/20 Ordered By: River Ledbetter Admission Data Admit Date/Time: 09/16/20 02:54 Attending Provider: River Ledbetter Admit Provider: Kanu Maria Primary Care Provider: Su Lim Other Providers: Kanu Maria ; Wili Richards ; Erendira Love ; Camilo Shaw I. ; Jac Baker II ; Denae Wolf ; Alphonso Saeed ; Gino Alejandre Other Interventions: Discharge Summary Assessment (RN) Last Done: 09/20/20 12:54
--- NOTE | 2020-09-20 15:35 | Ears,Nose,Throat Progress Note ---
Date of Service September 20, 2020 Assessment & Plan (1) Cellulitis of face: improved, agree with po antibiotics and D/C Admission and Anticipated Discharge Date Admission Date: September 16, 2020 Subjective much improved, no pain, swelling gone Physical Exam Constitutional: WD/WN, vitals as above Eyes: PERRL, conjunctivae normal, anicteric sclerae ENMT: Nose: + external nose abnormality (eschar improved, minimal erythema and minimal swelling) Results & Data ([facility]) Vital Signs (Past 12 Hours) Vital Signs Temp Pulse Resp BP Pulse Ox 09/20/20 07:32 36.6 C 67 16 112/69 99
[2020-09-23 14:52] LABS: CMV IgG Antibody <0.60 U/mL; CMV IgM Antibody <30.00 AU/mL; Herpes Simplex Ab IgG-1 <0.90 index; Herpes Simplex Ab IgG-2 <0.90 index
== END 2020-09-20 13:34 | disposition home or self-care (01) | DRG 603 ==
LOC: ED 21:12 → 3W 09-16 02:54 → SUATTDRO 09-16 02:54 → 3W 09-16 04:04